=== PATIENT | male | born 1950 | race Caucasian/White ===

== ENCOUNTER 2019-03-11 18:05 | Emergency (ER) | payer BC, MEDICARE ==
[2019-03-11 18:19] VITALS: BP 162/103; PULSE 93
== END 2019-03-11 18:35 | disposition home or self-care (01) ==
LOC: JD.ED 18:05
DX: Z53.21 Procedure and treatment not carried out due to patient leaving prior to being seen by health care provider (principal)
CPT/HCPCS: 99283